=== PATIENT | female | born 1990 | race Caucasian/White ===

== ENCOUNTER 2022-08-13 08:30 | Outpatient (CLI) | payer OTHER | END 2022-08-13 08:31 | disposition home or self-care (01) | LOC: SCSMRI 08:30 | PROVIDERS: ATTEND Physician Assistant | DX: R93.2 Abnormal findings on diagnostic imaging of liver and biliary tract (principal); R74.8 Abnormal levels of other serum enzymes; E34.9 Endocrine disorder, unspecified; R16.0 Hepatomegaly, not elsewhere classified; K76.89 Other specified diseases of liver | CPT/HCPCS: 74183 ==

== ENCOUNTER 2023-04-05 08:44 | Outpatient (CLI) | payer OTHER ==
[2023-04-05] MEDS ORDERED: Magnevist 469MG/ML 20 ML VIAL ONE (10:24)
== END 2023-04-05 08:45 | disposition home or self-care (01) ==
LOC: TBSIIMAG 08:44
PROVIDERS: ATTEND Legal Medicine
DX: R94.5 Abnormal results of liver function studies (principal)
CPT/HCPCS: 74183; A9579

== ENCOUNTER → 2023-12-16 | Outpatient (CLI) | payer OTHER, SELFPAY | LOC: SCSMRI 09:00 | PROVIDERS: ATTEND Legal Medicine | DX: R16.0 Hepatomegaly, not elsewhere classified (principal) | CPT/HCPCS: 74183 ==

== ENCOUNTER → 2024-10-24 | Outpatient (CLI) | payer BC | LOC: SCSMRI 08:45 | PROVIDERS: ATTEND Legal Medicine | DX: D13.4 Benign neoplasm of liver (principal); Z98.890 Other specified postprocedural states | CPT/HCPCS: 74183 ==